=== PATIENT | female | born 1995 | race Caucasian/White ===

== ENCOUNTER 2025-04-22 12:22 | Emergency (ER) | payer BC, SELFPAY ==
[2025-04-22 12:23] VITALS: BMI 37.5
[2025-04-22 13:12] VITALS: BP 112/70; PULSE 61; RESP 18; TEMP 36.7; O2SAT 98
--- NOTE | 2025-04-22 13:32 | EDNOTE_ITS ---
ED Skin Abcess FB-RME/HPI General Chief complaint: General Adult/Misc Complain Stated complaint: PT STATES SHE HAS 2ND DEGREE SUNBURN & BRUISING Time Seen by Provider: 04/22/25 12:38 Source: patient Arrival date/time: 04/22/25 12:22 29-year-old female with no known medical history presents to the emergency room with a chief complaint of a sunburn to her chest x 2 days Mode of arrival: ambulatory Limitations: no limitations Related Data Previous Rx's ?Medication ?Instructions ?Recorded acetaminophen 325 mg capsule 650 mg (2 x 325 mg) PO QI D PRN 04/22/25 fever or pain 7 days #30 caps cephalexin 500 mg capsule 500 mg PO BID 7 days #14 cap s 04/22/25 lidocaine-aloe vera 0.5 % topical 1 spray topical BID #127 grams 04/22/25 spray (Aloe Burn Relief) Allergies Allergy/AdvReac Type Severity Reaction Status Date / Time No Known Allergies Allergy Verified 04/22/25 12:25 Review of Systems Review of Systems Systems Reviewed: All systems reviewed, normal except as documented Constitutional Constitutional: Reports system reviewed and no additional complaints, except as documented, Denies fatigue, Denies fever(s), Denies headache(s) and Denies weakness Eyes Eyes: Reports system reviewed and no additional complaints, except as documented, Denies blurry vision and Denies change in vision ENT Ears, Nose, Mouth, and Throat: Reports system reviewed and no additional complaints, except as documented, Denies otalgia, Denies headache(s), Denies nasal congestion, Denies throat swelling and Denies vertigo Cardiovascular Cardiovascular: Reports system reviewed and no additional complaints, except as documented, Denies chest pain, Denies dyspnea and Denies dyspnea on exertion Respiratory Respiratory: Reports system reviewed and no additional complaints, except as documented, Denies chest congestion, Denies cough, Denies dyspnea, Denies dyspnea on exertion and Denies wheezing Gastrointestinal Gastrointestinal: Reports system reviewed and no additional complaints, except as documented, Denies abdominal pain, Denies cramping, Denies nausea and Denies vomiting Genitourinary Genitourinary: Reports system reviewed and no additional complaints, except as documented Musculoskeletal Musculoskeletal: Reports system reviewed and no additional complaints, except as documented and Denies back pain Integumentary/Breasts Skin/Breast: Reports system reviewed and no additional complaints, except as doc umented, Reports pruritus, Reports skin pain and Denies wounds Neurologic Neurologic: Reports system reviewed and no additional complaints, except as d ocumented, Denies confusion, Denies headache(s), Denies lack of coordination, Denies vertigo and Denies weakness Psychiatric Psychiatric: Reports system reviewed and no additional complaints, except as documented, Denies anxiety, Denies confusion, Denies depression, Denies paranoia, Denies suicidal ideation and Denies tactile hallucinations Endocrine Endocrine: Reports system reviewed and no additional complaints, except as documented and Denies fatigue Hematologic/Lymphatic Hematologic/Lymphatic: Reports system reviewed and no additional complaints, except as documented and Denies lymphadenopathy Allergic/Immunologic Allergic/Immunologic: Reports system reviewed and no additional complaints, except as documented, Denies throat swelling, Denies urticaria and Denies wheezing Past Medical History Social History SMOKING STATUS: Former smoker ED Exam General Limitations: Present no limitations General appearance: Present alert and in no apparent distress Head Head exam: Present atraumatic Eye Eye exam: Present normal appearance, PERRL and EOMI ENT ENT exam: Present normal exam, normal oropharynx and mucous membranes moist Neck Neck exam: Present normal inspection, full ROM and trachea midline Chest Chest inspection: Present normal inspection, symmetric chest wall rise and other (Sunburn) Respiratory Respiratory exam: Present normal lung sounds bilaterally Cardiovascular Cardiovascular exam: Present regular rate, normal rhythm and normal heart sounds Abdominal Exam Abdominal exam: Present soft and normal bowel sounds Extremities Exam Extremities exam: Present normal inspection and full ROM Back Exam Back exam: Present normal inspection and full ROM Neurological Exam Neurological exam: Present alert, oriented X3 and CN II-XII intact Psychiatric Psychiatric exam: Present normal affect and normal mood Skin Skin exam: Present warm, dry, intact and normal color Course Quality Measures none Vital Signs Vital signs: Vital Signs Temperature 98.1 F 04/22/25 13:12 Pulse Rate 61 04/22/25 13:12 Respiratory Rate 18 04/22/25 13:12 Blood Pressure 112/70 04/22/25 13:12 Pulse Oximetry (%) 98 04/22/25 13:12 Oxygen Delivery Method Room Air 04/22/25 13:12 Skin / Abscess / Foreign Body MDM Narrative MDM Narrative:: 29-year-old female with no known medical history presents to the emergency room with a chief complaint of a sunburn to her chest x 2 days Patient is hemodynamically stable and in no apparent distress Physical examination shows a first-degree sunburn to her chest. The site is erythemic, but there is no blistering. Antibiotics were sent to the patient's pharmacy, patient was educated on the use of aloe vera. And cool compresses Patient was discharged and educated to follow-up with primary care provider in the next 24 to 48 hours and return to the emergency room for any evidence of worsening signs or symptoms Patient data External records reviewed:: [facility] previous records Clinical information provided by:: patient Social determinants that could affect healthcare access:: none Patient has the following chronic illnesses:: No chronic illness How is presenting disease/condition affected by chronic disease/condition?: no chronic disease Evaluation data The following diagnostics were reviewed and interpreted by me:: lab results and radiology exam(s) Lab and/or radiology exams considered but not ordered:: Labs and radiology exams considered and ordered Interpretation Summary: N/A Medications / Prescriptions Medications or Prescriptions considered but not ordered:: No medication given Medication administrations:: No medication given Consultations Consultation(s) initiated? (list below): No Diagnosis Skin/Abscess Differential Diagnosis: other (Sunburn/cellulitis/) Most likely diagnosis given after review of the tests above:: First-degree sunburn Admission Indicated Admission indicated?: not indicated Admission Request Was there a request for admission?: No Disposition Plan Disposition Plan: Discharge Discharge Attestation Discharge Attestation: The patient and all family members were given an opportunity to ask questions and understood the discharge instructions. Discharge instructions specifically effects, indications for sooner follow up or return to the emergency department, and the expected course of current diagnosis. Patient condition: Stable Discharge Plan Plan Patient Disposition: HOME (Self Care) Discharge Disposition comment: Stable Prescriptions/Referrals Prescriptions/Med Rec: New cephalexin 500 mg capsule 500 mg PO BID 7 Days Qty: 14 0RF acetaminophen 325 mg capsule 650 mg PO QID PRN (Reason: fever or pain) 7 Days Qty: 30 0RF Aloe Burn Relief 0.5 % aerosol,spray 1 spray topical BID Qty: 127 0RF Problem List Clinical Impression: 1st degree sunburn Patient/Caregiver Discharge Instructions Education Materials: ED Burn, First-Degree Additional Instructions: Please follow-up with your primary care provider in the next 24 to 48 hours You can use cool compresses, and spread aloe vera gel to help you with your symptoms Medication was sent for your pain. Antibiotics are sent to prevent any infection For any evidence of worsening signs or symptoms return to the emergency room immediately Print Language: Wallisian Stand Alone Forms: [employer] Award Info., Patient Portal Info Letter PA/CONTAMINATED LAND CONSULTANT Supervising Physician PA/CONTAMINATED LAND CONSULTANT Supervising Physician: Dr. Teixeira
== END 2025-04-22 13:36 | disposition home or self-care (01) ==
LOC: SERX 13:40
PROVIDERS: Emergency Provider Emergency Medicine; PCP Physician Assistant Medical
DX: L55.0 Sunburn of first degree (principal)
CPT/HCPCS: 99281

== ENCOUNTER 2025-07-01 09:50 | Outpatient (AMB) | payer BC, SELFPAY ==
[2025-07-01 10:10] VITALS: BP 108/71; PULSE 69; RESP 17; TEMP 36.6; O2SAT 98; BMI 42.7
--- NOTE | 2025-07-01 10:10 | AMB.GYNCLNOT ---
Vital Signs 07/01/25 10:10 Height 1.7 m Height Method Measured Weight 123.887 kg Weight Measurement Method Standing Scale BMI 42.7 BP 108/71 Blood Pressure Source Automatic Cuff Blood Pressure Location Right Upper Arm Position Sitting Respiration 17 Pulse 69 Pulse Source Monitor Temp 97.8 F Temp Source Temporal Artery Scan Pulse Oximetry (%) 98 Oxygen Delivery Method Room Air Allergies/Home Meds Allergies & Medications Allergies No Known Allergies Allergy (Verified 07/01/25 10:11) Medication Reconciliation medroxyprogesterone 10 mg tablet (Provera) 10 mg PO QDAY 10 days #10 tabs 07/01/25 [Rx] Intake Visit Data Collection New Patient or Established: Established Patient (seen at [facility] within 3 years) Reason for Visit:: REF ABDOMINAL PAIN\IRREGULAR PERIODS Consent obtained for Telemed Visit: No Seen by Clinical Staff ONLY (RN/MA): No Wall Cleaner Required: No Do You Feel Safe at Home: Yes Authorities Contacted: N/A PCP or OBGYN visit in last 3 months: Yes Date of Last PCP or OBGYN visit: 04/22/25 Hx Now: No Are you currently on any form of Control: No Last menstrual period: 06/08/25 Pain Present Currently: Yes Pain Location: Abdomen Pain scale:: 5 Smoking Status Smoking Status: Former smoker 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 1. Little interest or pleasure in doing things: not at all 2. Feeling down, depressed, or hopeless: not at all Total score: 0 PHQ-9 3. Trouble falling or staying asleep, or sleeping too much: Not at all 4. Feeling tired or having little energy: Not at all 5. Poor appetite or overeating: Not at all 6. Feeling bad about yourself - or that you are a failure or have let yourself or your family down: Not at all 7. Trouble concentrating on things, such as reading the newspaper or watching television: Not at all 8. Moving or speaking so slowly that other people could have noticed? - Or the opposite - being so fidgety or restless that you have been moving around a lot more than usual: not at all 9. Thoughts that you would be better off or of hurting yourself in some way: Not at all Total score: 0 If you checked off any problems, how difficult have these problems made it for you to do your work, take care of things at home, or get along with other people?: not difficult at all Source: Developed by Drs. Zheng Hurst, Hilda Ordoñez, Rodrick Lima and colleagues, with an educational inna from [employer]. Social History Living Situation History Lives With: Family Housing: House Tobacco History Smoking Status: Former smoker Domestic Abuse History Do You Feel Safe at Home: Yes History of Present Illness HPI Narrative Jennie Hernandez, a 29-year-old female with a history of PCOS, presents on referral from her PCP for abnormal uterine bleeding, fatigue, hirsutism, weight gain, and inability to conceive. The patient reports multiple episodes of bleeding throughout her menstrual cycle. For the past three months, she has experienced two periods per month, with episodes of spotting and brown discharge lasting 4-6 days, accompanied by severe pain. Prior to her gastric bypass surgery in 2022, Jennie's periods were irregular, sometimes absent, and unpredictable in flow. Post-surgery, her periods became regular from the 10th to the 20th of each month for two years before the recent changes occurred. Jennie underwent gastric bypass surgery in 2022, resulting in a significant weight loss of 130 pounds. She reports that other health issues such as thyroid problems, high blood pressure, and diabetes have resolved since the surgery. However, she continues to experience fatigue, hirsutism, and weight gain. The patient has been unable to conceive and has no children. She had a cervical cancer biopsy and ultrasound over a year ago, both of which were negative. Jennie's current symptoms are impacting her daily life, particularly her ability to conceive and manage her menstrual cycle. Medical History: - Polycystic ovary syndrome (PCOS) - History of irregular menstrual cycles - Thyroid issues (resolved) - Hypertension (resolved) - Diabetes (resolved) Surgical History: - Gastric bypass surgery in 2022, resulting in 130 pounds of weight loss - Cervical cancer biopsy over a year ago, negative result Obstetric History: - GPAL: A0 L0 - Current : Not currently Medications: - Progesterone Social History: - No children, unable to conceive - History of gastric bypass surgery in 2022, resulting in 130-pound weight loss Diagnostic Test Results and Labs: - Cervical cancer biopsy (>1 year ago): Negative - Ultrasound (>1 year ago): Negative Review of Systems Review of Systems Systems Reviewed: All systems reviewed, normal except as documented Exam General General Appearance: alert, in no apparent distress and healthy appearing Head Head exam: atraumatic Neck Neck exam: Present normal inspection and trachea midline Chest Chest inspection: Present normal inspection and symmetric chest wall rise External exam: Present normal external exam; Absent tenderness Neuro Neurological exam: Present oriented X3 Psych Psychiatric exam: Present normal affect and normal mood Office Procedures OB Clinic LOC & Office Proc's Nursing/Assessment Patient Status: Established Patient OB Clinic Nursing Assessment: Medication Reconciliation, Update PMH in EMR and Vital Signs OB Clinic Coordination of Care: Complex Care and Chronic Disease 1-5, Consent,records obtained, informed consent, Education Simp Pt/Fam, 4+ Authorizations needed, Lab and Imaging orders and Results/Orders obtained Established Patient Charge Established Patient Point Assignment: 120 Established Patient Point Charge: EP Level 4 (120-155) Assessment & Plan Diagnosis / Problem List (1) Hirsutism: Status: Acute (2) Anovulatory (dysfunctional uterine) bleeding: Status: Acute (3) PCOS (polycystic ovarian syndrome): Status: Acute (4) Bariatric surgery status: Status: Acute Plan Abnormal Uterine Bleeding Assessment: Patient presents with a history of PCOS and recent onset of abnormal uterine bleeding. Following gastric bypass surgery in 2022, patient experienced regular menstrual cycles for two years. However, for the past three months, she has had two periods per month with episodes of spotting and brown discharge lasting 4-6 days, accompanied by severe pain. This pattern suggests anovulatory bleeding, likely due to PCOS. Previous cervical cancer biopsy and ultrasound over a year ago were negative. Plan: - Prescribe progesterone for 10 days to manage bleeding - Order baseline workup including hormone levels, ovarian hormones, regulatory hormones, ultrasound, thyroid test, and A1c - Await test results to confirm PCOS diagnosis - Discuss treatment options based on desire to conceive Infertility Assessment: Patient reports inability to conceive. This is likely related to her history of PCOS and irregular menstrual cycles. The recent onset of abnormal uterine bleeding may further complicate fertility efforts. Plan: - Discuss fertility treatment options pending PCOS confirmation including ovarian drilling and fertility medications - If fertility treatment is unsuccessful after 3-6 months, consider hysterectomy Polycystic Ovary Syndrome (PCOS) Assessment: Patient has a history of PCOS with associated symptoms including hirsutism and weight gain. While some symptoms improved following gastric bypass surgery, recent abnormal uterine bleeding suggests ongoing hormonal imbalances consistent with PCOS. Plan: - Await results of baseline workup to confirm PCOS diagnosis - Develop treatment plan based on test results and patient's fertility goals
== END 2025-07-01 10:29 | disposition home or self-care (01) ==
PROVIDERS: PCP Physician Assistant Medical; Referring Provider Physician Assistant Medical; Supervising Provider Obstetrics & Gynecology; Visit Provider Obstetrics & Gynecology
DX: N93.8 Other specified abnormal uterine and vaginal bleeding (principal); L68.0 Hirsutism; N97.0 Female infertility associated with anovulation; E28.2 Polycystic ovarian syndrome; Z98.84 Bariatric surgery status; Z87.891 Personal history of nicotine dependence
CPT/HCPCS: 99214; G0463

== ENCOUNTER → 2025-07-01 | Outpatient (CLI) | payer BC, SELFPAY ==
[2025-07-01 12:06] LABS: Glucose Estimated Average 100 mg/dL (80-131); Hemoglobin A1C 5.1 % Hgb (4.8-6.0)
[2025-07-01 12:25] LABS: Follicle Stimulating Hormone 2.67 mIU/mL (See Note)
[2025-07-14 07:06] LABS: DHEA Sulfate* 374 mcg/dL (18-391); Estradiol, Free 2.23 pg/mL; Estradiol, Total 115 pg/mL; Prolactin* 52.1 ng/mL; Sex Hormone Binding Globulin* 48 nmol/L (17-124); Testosterone,Total* 33 ng/dL (2-45)
== END | disposition home or self-care (01) ==
LOC: COPL 10:41
PROVIDERS: PCP Nurse Practitioner Family; Referring Provider Obstetrics & Gynecology; Visit Provider Obstetrics & Gynecology
DX: E28.2 Polycystic ovarian syndrome (principal)
CPT/HCPCS: 36415; 82627; 82670; 82681; 83001; 83036; 84146; 84270; 84403

== ENCOUNTER → 2025-07-23 | Outpatient (CLI) | payer BC, SELFPAY ==
--- NOTE | 2025-07-23 09:30 | XR_ITS ---
Examination: Pelvic ultrasound, transabdominal, complete Technique: Transabdominal ultrasound of the pelvis performed using grayscale imaging Date and time of exam: July 23, 2025 0955 hours INDICATIONS: Vaginal bleeding irregular heavy menses noticed beginning 3 months ago. FINDINGS: Uterus 8.2 cm endometrial stripe 1.0 cm No uterine mass or intrauterine gestation Right ovary 3.4 cm arterial flow. Left ovary 4.6 x 2.5 x 3.3 cm arterial flow. IMPRESSION: Prominent left ovary, recommend 3 month follow-up pelvic sonography
== END | disposition home or self-care (01) ==
LOC: CDIM 09:42
PROVIDERS: PCP Nurse Practitioner Family; Referring Provider Obstetrics & Gynecology; Visit Provider Obstetrics & Gynecology
DX: N93.9 Abnormal uterine and vaginal bleeding, unspecified (principal)
CPT/HCPCS: 76856

== ENCOUNTER 2025-08-10 08:51 | Outpatient (AMB) | payer BC, SELFPAY ==
--- NOTE | 2025-08-10 09:04 | AMB.GYNCLNOT ---
Vital Signs 08/10/25 09:20 Height 1.7 m Height Method Stated Weight 119.522 kg Weight Measurement Method Standing Scale BMI 41.3 BP 104/72 Blood Pressure Source Automatic Cuff Blood Pressure Location Left Upper Arm Position Sitting Respiration 14 Pulse 65 Pulse Source Monitor Temp 97.8 F Temp Source Oral Pulse Oximetry (%) 98 Oxygen Delivery Method Room Air Allergies/Home Meds Allergies & Medications Allergies No Known Allergies Allergy (Verified 08/10/25 09:21) Medication Reconciliation letrozole 2.5 mg tablet 2.5 mg PO QDAY 5 days #5 tabs 08/10/25 [Rx] Intake Visit Data Collection New Patient or Established: Established Patient (seen at [facility] within 3 years) Reason for Visit:: PCOS FOLLOW UP Seen by Clinical Staff ONLY (RN/MA): No Abrasive Wheel Molder Required: No Do You Feel Safe at Home: Yes Authorities Contacted: N/A PCP or OBGYN visit in last 3 months: Yes Hx Now: No Are you currently on any form of Control: No Last menstrual period: 08/08/25 Pain Present Currently: No Pain Scale Used: Guerra-Marie/Numerical Pain scale:: 0 Smoking Status Smoking Status: Former smoker Tobacco Use: Vapor Cigarette Community Board Member history Community Board Member History Menstrual regularity: regular Flow: heavy Monthly: Yes How many days does period last: 7 Age at menarche: 14 Currently sexually active: Yes Questionnaires Covid-19 Vaccine Questionnaire Has patient been vacinated for Covid-19 Have you been vacinated for Covid-19: Yes PHQ-9 PHQ-2 Over the last 2 weeks, how often have you been bothered by any of the following problems? 1. Little interest or pleasure in doing things: not at all 2. Feeling down, depressed, or hopeless: not at all Total score: 0 PHQ-9 3. Trouble falling or staying asleep, or sleeping too much: Not at all 4. Feeling tired or having little energy: Not at all 5. Poor appetite or overeating: Not at all 6. Feeling bad about yourself - or that you are a failure or have let yourself or your family down: Not at all 7. Trouble concentrating on things, such as reading the newspaper or watching television: Not at all 8. Moving or speaking so slowly that other people could have noticed? - Or the opposite - being so fidgety or restless that you have been moving around a lot more than usual: not at all 9. Thoughts that you would be better off or of hurting yourself in some way: Not at all Total score: 0 Source: Developed by Drs. Zheng Hurst, Hilda Ordoñez, Rodrick Lima and colleagues, with an educational inna from [employer]. Depression screen completed yes Social History Living Situation History Lives With: Family Housing: House Tobacco History Smoking Status: Former smoker Second Hand Smoke Exposure: Yes Alcohol History Alcohol Intake: Never Domestic Abuse History Do You Feel Safe at Home: Yes History of Present Illness HPI Narrative Jennie Hernandez is a 30-year-old female with a history of PCOS and infertility who presents for follow-up after being started on cyclic progesterone therapy. She has a significant history of bariatric surgery with Nathen-en-Y gastric bypass in 2022, resulting in 130 pounds of weight loss. The patient reports adherence to the prescribed cyclic progesterone regimen, completing the full course as directed. However, she experienced breakthrough bleeding, starting her period approximately 5 days into the medication course after taking 5 pills. Despite continuing the medication through completion, her menstrual period persisted throughout the treatment course and was notably heavy in nature. This heavy bleeding occurred from July 07 to July 12, following a previous menstrual cycle from June 08 to June 12. She subsequently had another menstrual period starting on August 08. The patient continues to experience hirsutism, specifically facial hair growth, which remains a concern for her. She inquires about the underlying cause of this symptom despite normal testosterone levels. Since her last visit, the patient has maintained her significant weight loss following bariatric surgery. Her menstrual cycles have become more regular but heavier in flow, which she attributes to the recent hormonal treatment and metabolic changes following her substantial weight loss. She has a history of Nathen-en-Y gastric bypass in 2022. The patient has been taking cyclic progesterone, which she finished the course. She started her period about 5 days after taking 5 pills, with the period being really heavy and continuing through the course. She is a 30-year-old female. Her last menstrual period was on August 08. ROS: Positive for facial hair growth and heavy menstrual periods. Diagnostic Test Results and Labs: - Hemoglobin A1c: 5.1 - Average glucose: 100 - Estrogen level: normal - LH: normal - FSH: normal - Prolactin: slightly high but not concerning - DHEA: 374 (upper range but not PCOS territory) - Testosterone: normal - Ultrasound: essentially normal, no cyst, no fibroid Exam General General Appearance: alert, in no apparent distress and healthy appearing Head Head exam: atraumatic Neck Neck exam: Present normal inspection and trachea midline Chest Chest inspection: Present normal inspection and symmetric chest wall rise External exam: Present normal external exam; Absent tenderness Neuro Neurological exam: Present oriented X3 Psych Psychiatric exam: Present normal affect and normal mood Office Procedures [facility] LOC & Office Proc's Nursing/Assessment Patient Status: Established Patient OB Clinic Nursing Assessment: Medication Reconciliation, Update PMH in EMR and Vital Signs OB Clinic Coordination of Care: Complex Care and Chronic Disease 1-5, Consent,records obtained, informed consent, Education Simp Pt/Fam, Lab and Imaging orders, Results/Orders obtained and Staff clarify orders Established Patient Charge Established Patient Point Assignment: 105 Established Patient Point Charge: EP Level 3 (80-115) Assessment & Plan Diagnosis / Problem List (1) Bariatric surgery status: Status: Acute (2) Hirsutism: Status: Acute (3) Anovulatory (dysfunctional uterine) bleeding: Status: Acute (4) PCOS (polycystic ovarian syndrome): Status: Acute Plan Polycystic Ovary Syndrome (PCOS) with Secondary Infertility: - 30-year-old female with history of PCOS and secondary infertility. - Status post Nathen-en-Y bariatric surgery in 2022 with 130-pound weight loss. - Recent labs show normal A1c (5.1%), glucose (100 mg/dL), estrogen, LH, FSH, and testosterone levels. - Prolactin slightly elevated but not concerning. - DHEA at upper range (374) but not in PCOS territory. - Ultrasound results essentially normal with no cysts or fibroids. - Reports heavier menstrual periods likely due to weight loss and metabolic changes. Plan: - Initiate fertility treatment with letrozole: ? 5-day course starting on day 3 of menstrual cycle ? Provided calendar for ovulation tracking ? Instructions for urine test kits at home for ovulation detection (days 12-15) ? If ovulation not achieved, plan to double the dose next cycle - 6 months of letrozole refills provided. - Follow-up appointment scheduled in 2 months. - If not achieved, plan to repeat lab workup in 6 months. - Patient educated on treatment process, including potential for 3-6 cycles before conception. - Advised to return sooner if concerns arise. Hirsutism: - Patient reports facial hair growth. - Given normal testosterone levels, likely due to metabolic factors rather than hormonal imbalance. Plan: - Defer treatment for hirsutism until after and delivery. - Consider spironolactone for hair growth management . - Educated patient that hormones may help reduce hair growth.
[2025-08-10 09:20] VITALS: BP 104/72; PULSE 65; RESP 14; TEMP 36.6; O2SAT 98; BMI 41.3
== END 2025-08-10 09:47 | disposition home or self-care (01) ==
LOC: HODSOBC 08:51
PROVIDERS: Supervising Provider Obstetrics & Gynecology; Visit Provider Obstetrics & Gynecology
DX: E28.2 Polycystic ovarian syndrome (principal); L68.0 Hirsutism; N97.0 Female infertility associated with anovulation; Z98.84 Bariatric surgery status; Z87.891 Personal history of nicotine dependence
CPT/HCPCS: 99213; G0463